=== PATIENT | female | born 1995 | race Caucasian/White ===

== ENCOUNTER 2019-12-31 15:06 | Emergency (ER) | payer SELFPAY ==
[2019-12-31 16:10] LABS: Absolute Lymphocytes (CBC) 1.4 K/uL (0.7-4.9); Basophils % 0.3 % (0-1.3); Hematocrit 41.7 % (36.0-45.0); Lymphocytes % 26.5 % (15.3-44.8); MPV 7.7 fL (7.6-11.3); RBC Red Blood Cell Count 4.52 M/uL (3.86-4.86)
[2019-12-31 16:39] LABS: Urine Blood 3+ (NEG); Urine Glucose NEGATIVE (NEG); Urine Protein 2+ (NEG); Urine Specific Gravity >1.030 (1.005-1.030)
[2019-12-31 16:46] LABS: ALT/SGPT 14 U/L (12-78); AST/SGOT 8 U/L (15-37); Albumin 4.1 g/dL (3.4-5.0); Alkaline Phosphatase 43 U/L (45-117); BUN Blood Urea Nitrogen 7 mg/dL (7-18); Bicarbonate 26 mmol/L (21-32); Bilirubin Total 1.6 mg/dL (0.2-1.0); Glucose Level 123 mg/dL (74-106); HCG, Quantitative 9405 mIU/mL (1-3); Potassium 3.4 mmol/L (3.5-5.1); Protein, Total 7.4 g/dL (6.4-8.2); Sodium Level 142 mmol/L (136-145)
[2019-12-31] MEDS ORDERED: ACETAMINOPHEN 500 MG TAB ONE (16:52)
--- NOTE | 2019-12-31 17:47 | RAD REPORT ---
EXAM DESCRIPTION: US - Transvaginal OB - 12/31/2019 5:24 pm CLINICAL HISTORY: threatened ab / ectopiuc Pelvic pain COMPARISON: OB Complete dated 02/21/2016 FINDINGS: A single gestational sac is seen within the uterus. The gestational sac is somewhat irregu lar in shape. Within the sac, no embryo or yolk sac is clearly seen. The maternal adnexa and ovaries are within normal limits. Normal Doppler blood flow was demonstrated to both ovaries. Small amount free fluid is seen in the pelvis. IMPRESSION: There is a fairly large but abnormally shaped gestational sac in the fundal endometrium. No yolk sac or embryo identified. Findings are worrisome for a blighted ovum. Advise serial HCG leve ls and follow-up pelvic sonography in 7-10 days.
--- NOTE | 2019-12-31 17:51 | ER ---
Nurse's Notes [facility] Name: Barbara Friend Age: 24 yrs Sex: Female : 1995 Arrival Date: 12/31/2019 Time: 15:09 Bed 20 Private MD: Diagnosis: Threatened ;Blighted Ovum Presentation: 12/30 15:19 Chief complaint: Patient states: Approximately 7-8 weeks , . Started to ll1 have vaginal bleeding and cramping "like a period" yesterday. + nausea with 1 vomitus today. No cough/fever/travel. Coronavirus screen: Proceed with normal triage. Patient denies a cough. Patient reports shortness of breath or difficulty breathing. Patient denies measured and/or subjective temperature greater than 100.4F prior to today's visit. Patient denies travel on a cruise ship or to a country the [facility] currently lists as an affected area. Patient denies contact with known and/or suspected case of COVID-19. Ebola Screen: Patient denies travel to an Ebola-affected area in the 21 days before illness onset. Initial Sepsis Screen: Does the patient meet any 2 criteria? HR > 90 bpm. No. Patient's initial sepsis screen is negative. Risk Assessment: Do you want to hurt yourself or someone else? Patient reports no desire to harm self or others. Onset of symptoms was December 30, 2019. 15:19 Method Of Arrival: Ambulatory [facility] 15:19 Acuity: ANGIE 3 ll1 Triage Assessment: 16:30 General: Appears in no apparent distress. Behavior is calm, cooperative. Pain: Denies pain. : Reports cramping, vaginal bleeding that is. Historical: - Allergies: 15:22 No Known Allergies; ll1 - PMHx: 15:22 None; ll1 - PSHx: 15:22 None; ll1 - Social history:: Smoking status: Patient reports the use of cigarette tobacco products, smokes one-half pack cigarettes per day, Patient/guardian denies using alcohol, street drugs. Screenin:30 Abuse screen: Denies threats or abuse. Nutritional screening: No deficits noted. Tuberculosis screening: No symptoms or risk factors identified. Fall Risk None identified. Assessment: 16:07 Obstetrical Assessment: Patient reports abdominal cramping, bleeding. 16:07 General: Appears in no apparent distress. Behavior is calm. Pain: Denies pain. Neuro: No deficits noted. Level of Consciousness is awake, alert, Oriented to person, place, time. Cardiovascular: Heart tones S1 S2 present Capillary refill < 3 seconds Patient's skin is warm and dry. Respiratory: Airway is patent Respiratory effort is even, unlabored, Respiratory pattern is regular, symmetrical, Breath sounds are clear. GI: No signs and/or symptoms were reported involving the gastrointestinal system. : Reports cramping, vaginal bleeding that is moderate flow, since yesterday. EENT: No signs and/or symptoms were reported regarding the EENT system. 16:50 Reassessment: Pt c/o increased cramping at this time. Informed MD. Tylenol ordered and ah administered. 18:00 Reassessment: Pt awaiting results at this time. No distress noted. 19:00 Reassessment: Discharge instructions given to pt with prescription to have follow up labwork drawn. Pt voiced understanding. Vital Signs: 15:19 BP 126 / 86; Pulse 94; Resp 17; Temp 98.9; Pulse Ox 98% ; Pain 4/10; ll1 15:54 BP 108 / 64; Pulse 80; Resp 16; Pulse Ox 95% on R/A; mh5 17:38 BP 106 / 55; Pulse 71; Resp 16; Temp 99(O); Pulse Ox 97% on R/A; mh5 ED Course: 15:09 Patient arrived in ED. mr 15:11 Tom Barahona MD is Attending Physician. ps1 15:22 Triage completed. ll1 15:23 Arm band placed on Patient placed in an exam room, on a stretcher. ll1 15:29 Tammy Garcia, RN is Primary Nurse. 15:35 Urine --Ancillary (enter results) Sent. [facility] 15:35 Urine Dipstick--Ancillary (enter results) Sent. 5 15:37 Radiology exam delayed due to lab results not completed at this time. test aa4 not completed at this time. 15:53 Initial lab(s) drawn, by me, sent to lab. Inserted saline lock: 22 gauge in left [facility] antecubital area, using aseptic technique. Blood collected. 15:57 Patient has correct armband on for positive identification. Bed in low position. Call [facility] light in reach. Pulse ox on. NIBP on. 15:57 CMP Sent. 5 15:57 CBC with Diff Sent. 5 16:30 No provider procedures requiring assistance completed. IV discontinued, intact, ah bleeding controlled, No redness/swelling at site. Pressure dressing applied. 17:24 Transvaginal OB In Process Unspecified. EDMS 17:49 Matias Latif MD is Referral Physician. ps1 Administered Medications: 16:50 Drug: Tylenol 1000 mg Route: PO; 17:50 Follow up: Response: No adverse reaction; Pain is decreased Outcome: 17:50 Discharge ordered by MD. ps1 18:45 Discharged to home ambulatory. 18:45 Condition: good 18:45 Discharge instructions given to patient, Instructed on discharge instructions, follow up and referral plans. Demonstrated understanding of instructions, follow-up care, Prescriptions given X 1. 19:08 Patient left the ED. jb4 Signatures: Dispatcher [employer] EDIN Grace Carpenter Amanda 4 Padilla Thayer, RN RN [facility] Jo Dickson [facility] Tom Barahona MD MD [facility] Tammy Garcia, RN RN Eun Caicedo RN RN ll1 Corrections: (The following items were deleted from the chart) 16:48 15:57 To radiology for OB Complete+US.RAD.BRZ. 5 EDIN
--- NOTE | 2019-12-31 17:51 | EDPHYS ---
Physician Documentation [facility] Name: Barbara Friend Age: 24 yrs Sex: Female : 1995 Arrival Date: 12/31/2019 Time: 15:09 Bed 20 Private MD: ED Physician Tom Barahona HPI: 12/30 15:58 This 24 yrs old Female presents to ER via Ambulatory with complaints of ps1 Vaginal Bleeding, + Preg <12wks. 15:58 1EAB presenting with VB and reportedly 7 wks by dates and home UPT. ps1 Cramping in the suprapubic area. No confirmation US. VB for last 2 days. No passage of clots. Patient of [facility] for last . No urinary complaints, sexual activity over a week ago. . Historical: - Allergies: 15:22 No Known Allergies; ll1 - PMHx: 15:22 None; ll1 - PSHx: 15:22 None; ll1 - Social history:: Smoking status: Patient reports the use of cigarette tobacco products, smokes one-half pack cigarettes per day, Patient/guardian denies using alcohol, street drugs. ROS: 15:58 Constitutional: Negative for fever, chills, and weight loss, Eyes: Negative for injury, ps1 pain, redness, and discharge, Cardiovascular: Negative for chest pain, palpitations, and edema, Respiratory: Negative for shortness of breath, cough, wheezing, and pleuritic chest pain, Abdomen/GI: Negative for abdominal pain, nausea, vomiting, diarrhea, and constipation, MS/Extremity: Negative for injury and deformity, Skin: Negative for injury, rash, and discoloration. 15:58 : Positive for vaginal bleeding. Exam: 15:58 Constitutional: This is a well developed, well nourished patient who is awake, alert, ps1 and in no acute distress. Head/Face: Normocephalic, atraumatic. Eyes: Pupils equal round and reactive to light, extra-ocular motions intact. Lids and lashes normal. Conjunctiva and sclera are non-icteric and not injected. 15:58 Chest/axilla: Inspection: normal. 15:58 Cardiovascular: Rate: normal. 15:58 Respiratory: the patient does not display signs of respiratory distress, Respirations: normal. 15:58 Abdomen/GI: Inspection: abdomen appears normal, Palpation: abdomen is soft and non-tender, mild abdominal tenderness, in the suprapubic area. 15:58 Musculoskeletal/extremity: Extremities: all appear grossly normal, with no appreciated pain with palpation. 15:58 Neuro: Orientation: is normal, Motor: is normal. 15:58 Psych: Behavior/mood is pleasant. Vital Signs: 15:19 BP 126 / 86; Pulse 94; Resp 17; Temp 98.9; Pulse Ox 98% ; Pain 4/10; ll1 15:54 BP 108 / 64; Pulse 80; Resp 16; Pulse Ox 95% on R/A; mh5 17:38 BP 106 / 55; Pulse 71; Resp 16; Temp 99(O); Pulse Ox 97% on R/A; mh5 MDM: 16:19 Patient medically screened. ps1 17:51 Data reviewed: vital signs, nurses notes, lab test result(s), radiologic studies, and ps1 as a result, I will discharge patient. Counseling: I had a detailed discussion with the patient and/or guardian regarding: the historical points, exam findings, and any diagnostic results supporting the discharge/admit diagnosis, the need for outpatient follow up, an OB/Gyne specialist, to return to the emergency department if symptoms worsen or persist or if there are any questions or concerns that arise at home, HCG in 24 hours. Need repeat US in 7-10 days. . 12/30 15:32 Order name: CBC with Diff; Complete Time: 16:19 ps1 12/30 15:32 Order name: CMP; Complete Time: 16:47 ps1 12/30 15:32 Order name: HCG-Quantitative; Complete Time: 16:47 ps1 12/30 15:33 Order name: Urine Dipstick--Ancillary (enter results); Complete Time: 16:43 em1 12/30 15:33 Order name: Urine --Ancillary (enter results); Complete Time: 16:43 em1 12/30 15:32 Order name: Urine Dipstick-Ancillary (obtain specimen); Complete Time: 15:33 ps1 12/30 16:48 Order name: Transvaginal OB; Complete Time: 17:48 EDMS 12/30 17:23 Order name: Abo/rh Typing; Complete Time: 18:23 ss Administered Medications: 16:50 Drug: Tylenol 1000 mg Route: PO; ah 17:50 Follow up: Response: No adverse reaction; Pain is decreased Disposition: 12/31/19 17:50 Discharged to Home. Impression: Threatened , Blighted Ovum. - Condition is Stable. - Discharge Instructions: Threatened Miscarriage, [id number], Blighted Ovum. - Medication Reconciliation Form, Thank You Letter, Antibiotic Education, Prescription Opioid Use form. - Follow up: Matias Latif MD; When: 48 Hours; Reason: Further diagnostic work-up, Recheck today's complaints, Continuance of care, Re-evaluation by your physician. Follow up: Emergency Department; When: As needed; Reason: Fever > 102 F, Trouble breathing, Worsening of condition. - Problem is new. - Symptoms are unchanged. Signatures: Dispatcher [employer] EDMS Padilla Thayer, RN RN jb4 Tom Barahona MD MD ps1 Tammy Garcia RN RN Eun Caicedo RN RN ll1 Corrections: (The following items were deleted from the chart) 15:34 15:32 RH TYPE+BB.LAB.BRZ ordered. EDMS EDMS 16:48 15:33 OB Complete+US.RAD.BRZ ordered. EDWI EDMS 19:08 17:50 12/31/2019 17:50 Discharged to Home. Impression: Threatened ; Blighted jb4 Ovum. Condition is Stable. Forms are Medication Reconciliation Form, Thank You Letter, Antibiotic Education, Prescription Opioid Use. Follow up: Matias Latif; When: 48 Hours; Reason: Further diagnostic work-up, Recheck today's complaints, Continuance of care, Re-evaluation by your physician. Follow up: Emergency Department; When: As needed; Reason: Fever > 102 F, Trouble breathing, Worsening of condition. Problem is new. Symptoms are unchanged. ps1
[2019-12-31 19:16] VITALS: BP 106/55; TEMP 99; O2SAT 97
== END 2019-12-31 19:08 | disposition home or self-care (01) ==
LOC: ER 15:06
DX: O02.0 Blighted ovum and nonhydatidiform mole (principal); O99.331 Smoking (tobacco) complicating pregnancy, first trimester; F17.210 Nicotine dependence, cigarettes, uncomplicated; Z3A.01 Less than 8 weeks gestation of pregnancy
CPT/HCPCS: 36415; 76817; 80053; 81003; 81025; 84702; 85025; 86900; 86901; 99284

== ENCOUNTER 2020-05-09 17:10 | Emergency (ER) | payer SELFPAY ==
--- NOTE | 2020-05-09 19:24 | RAD REPORT ---
EXAM DESCRIPTION: US - 1St Trimest Single 1St Fetus - 05/09/2020 6:53 pm CLINICAL HISTORY: VAGINAL BLEEDING COMPARISON: No comparisons FINDINGS: No intrauterine gestational sac or sac remnant identified. Thickened heterogeneous endomet rial tissue is identifiable. Minimal amount of fluid is seen in the vaginal cuff. No myometrial mass. No discrete endometrial solid mass or polyp. No blood or fluid in the cul de sac. Both ovaries are identified and show normal blood flow pattern. No adnexal mass. IMPRESSION: No intrauterine gestational sac or sac remnant. Thickened, heterogeneous endometrial tis zaid seen.
--- NOTE | 2020-05-09 19:34 | EDPHYS ---
Physician Documentation [facility] Name: Barbara Friend Age: 24 yrs Sex: Female : 1995 Arrival Date: 05/09/2020 Time: 17:12 Bed 5 Private MD: ED Physician John Lima HPI: 05/09 18:12 This 24 yrs old Female presents to ER via Wheelchair with complaints of jmm Vaginal Bleeding, + Preg <12wks. 18:12 The patient presents to the emergency department with vaginal bleeding. The estimated jmm gestational age is 8 weeks. This is a 24 year old female with no chronic medical conditions that presents to the ED with complaints of vaginal bleeding and pelvic cramping beginning today. Patient states she had an episode of light bleeding 1 week which had resolved. . SPORTS MEDIA: 17:20 3, Full Term 1, 1, Living 1, LMP 03/12/2020 jl7 18:12 3, 1, Living 1 jmm Historical: - Allergies: 17:20 No Known Allergies; jl7 - Home Meds: 17:20 None [Active]; jl7 - PMHx: 17:20 None; jl7 - PSHx: 17:20 None; jl7 - Immunization history:: Adult Immunizations up to date. - Social history:: Smoking status: Patient denies any tobacco usage or history of. ROS: 18:12 Constitutional: Negative for fever, chills, and weight loss, Cardiovascular: Negative jmm for chest pain, palpitations, and edema, Respiratory: Negative for shortness of breath, cough, wheezing, and pleuritic chest pain. 18:12 : Positive for vaginal bleeding. 18:12 All other systems are negative. Exam: 18:12 Constitutional: This is a well developed, well nourished patient who is awake, alert, jmm and in no acute distress. Head/Face: atraumatic. Eyes: EOMI, no conjunctival erythema appreciated ENT: Moist Mucus Membranes Neck: Trachea midline, Supple Chest/axilla: Normal chest wall appearance and motion. Cardiovascular: Regular rate and rhythm. No edema appreciated Respiratory: Normal respirations, no respiratory distress appreciated Abdomen/GI: Non distended, soft Back: Normal ROM Skin: General appearance color normal MS/ Extremity: Moves all extremities, no obvious deformities appreciated, no edema noted to the lower extremities Neuro: Awake and alert, normal gait Psych: Behavior is normal, Mood is normal, Patient is cooperative and pleasant Vital Signs: 17:17 BP 124 / 76; Pulse 85; Resp 15 S; Temp 98.6(O); Pulse Ox 98% on R/A; Weight 65.77 kg jl7 (R); Height 5 ft. 3 in. (160.02 cm) (R); Pain 0/10; 18:25 BP 123 / 71; Pulse 83; Resp 16; Pulse Ox 99% ; rb1 19:30 BP 105 / 67; Pulse 82; Resp 16 S; Pulse Ox 99% on R/A; mg2 17:17 Body Mass Index 25.69 (65.77 kg, 160.02 cm) jl7 MDM: 17:56 Patient medically screened. [facility] 19:25 Data reviewed: vital signs, nurses notes. Counseling: I had a detailed discussion with wilfredo the patient and/or guardian regarding: the historical points, exam findings, and any diagnostic results supporting the discharge/admit diagnosis, the need for outpatient follow up, to return to the emergency department if symptoms worsen or persist or if there are any questions or concerns that arise at home. Refusal of service: The patient/guardian displays adequate decision making capability and despite a detailed discussion of alternatives, benefits, risks, and consequences refuses: all lab tests. 05/09 18:12 Order name: 1st Trimest Single 1st Fetus; Complete Time: 19:25 [facility] 05/09 18:12 Order name: IV Saline Lock [facility] 05/09 18:12 Order name: Labs collected and sent [facility] 05/09 18:12 Order name: NPO [facility] Administered Medications: No medications were administered Disposition: 05/10 12:02 Co-signature as Attending Physician, John Lima MD I agree with the assessment and [facility] plan of care. Disposition: 05/09/20 19:33 Discharged to Home. Impression: Threatened . - Condition is Stable. - Discharge Instructions: Threatened Miscarriage. - Medication Reconciliation Form, Thank You Letter, Antibiotic Education, Prescription Opioid Use form. - Follow up: Private Physician; When: 2 - 3 days; Reason: Recheck today's complaints, Continuance of care, Re-evaluation by your physician. Signatures: Dispatcher [employer] EDMS Clarence, JohnMD MD carmine Joel, PA PA jmm Leal, Jahala RN RN jl7 Ramon Bhatt, RN RN mg2 Corrections: (The following items were deleted from the chart) 05/09 19:48 19:33 05/09/2020 19:33 Discharged to Home. Impression: Threatened . Condition mg2 is Stable. Forms are Medication Reconciliation Form, Thank You Letter, Antibiotic Education, Prescription Opioid Use. Follow up: Private Physician; When: 2 - 3 days; Reason: Recheck today's complaints, Continuance of care, Re-evaluation by your physician. wilfredo
--- NOTE | 2020-05-09 19:34 | ER ---
Nurse's Notes [facility] Name: Barbara Friend Age: 24 yrs Sex: Female : 1995 Arrival Date: 05/09/2020 Time: 17:12 Bed 5 Private MD: Diagnosis: Threatened Presentation: 05/09 17:17 Chief complaint: Patient states: "I think I had a miscarriage about an hour ago. jl7 Bleeding, cramping a I passed some tissue." Denies pain at this time. I had a miscarriage about 3 months ago also. Coronavirus screen: Client denies travel out of the [place] in the last 14 days. At this time, the client does not indicate any symptoms associated with coronavirus-19. Ebola Screen: No symptoms or risks identified at this time. Initial Sepsis Screen: Does the patient meet any 2 criteria? No. Patient's initial sepsis screen is negative. Does the patient have a suspected source of infection? No. Patient's initial sepsis screen is negative. Risk Assessment: Do you want to hurt yourself or someone else? Patient reports no desire to harm self or others. Onset of symptoms was May 09, 2020. Care prior to arrival: None. Transition of care: patient was not received from another setting of care. 17:17 Method Of Arrival: Wheelchair [facility] 17:17 Acuity: ANGIE 3 jl7 Triage Assessment: 17:20 General: Appears in no apparent distress. uncomfortable, Behavior is calm, cooperative, jl7 appropriate for age, quiet. Pain: Denies pain. Neuro: Level of Consciousness is awake, alert, obeys commands, Oriented to person, place, time, situation. Cardiovascular: Patient's skin is warm and dry. Respiratory: Airway is patent Respiratory effort is even, unlabored, Respiratory pattern is regular, symmetrical. GI: No signs and/or symptoms were reported involving the gastrointestinal system. : Reports vaginal bleeding that is. Derm: Skin is pink, warm \\T\\ dry. [employer]: 17:20 3, Full Term 1, 1, Living 1, LMP 03/12/2020 jl7 18:12 3, 1, Living 1 [facility] Historical: - Allergies: 17:20 No Known Allergies; jl7 - Home Meds: 17:20 None [Active]; jl7 - PMHx: 17:20 None; jl7 - PSHx: 17:20 None; jl7 - Immunization history:: Adult Immunizations up to date. - Social history:: Smoking status: Patient denies any tobacco usage or history of. Screenin:57 Abuse screen: Denies threats or abuse. Nutritional screening: No deficits noted. rb1 Tuberculosis screening: No symptoms or risk factors identified. Fall Risk None identified. Assessment: 17:57 General: Appears in no apparent distress. comfortable, Behavior is calm, cooperative, rb1 Denies fever, Pt. reports that she felt weak at home when she passed the tissue but she feels fine now.. Pain: Complains of pain in suprapubic area Quality of pain is described as crampy. Neuro: Level of Consciousness is awake, alert, obeys commands, Oriented to person, place, time, situation. Neuro: Denies weakness. Cardiovascular: Capillary refill < 3 seconds. Respiratory: Airway is patent Respiratory effort is even, unlabored, Respiratory pattern is regular, symmetrical. GI: Reports nausea, vomiting. : Reports vaginal bleeding that is bright red, with clots, heavy flow Reports passing tissue at home. Derm: Skin is pink, warm \\T\\ dry. 18:23 Reassessment: Pt. refused IV and labs, educated pt. on the necessity of the lab results rb1 and she continues to refuse. Provider notified. Vital Signs: 17:17 BP 124 / 76; Pulse 85; Resp 15 S; Temp 98.6(O); Pulse Ox 98% on R/A; Weight 65.77 kg 7 (R); Height 5 ft. 3 in. (160.02 cm) (R); Pain 0/10; 18:25 BP 123 / 71; Pulse 83; Resp 16; Pulse Ox 99% ; rb1 19:30 BP 105 / 67; Pulse 82; Resp 16 S; Pulse Ox 99% on R/A; mg2 17:17 Body Mass Index 25.69 (65.77 kg, 160.02 cm) 7 ED Course: 17:12 Patient arrived in ED. ag5 17:20 Triage completed. jl7 17:20 Arm band placed on right wrist. jl7 17:52 Swapna Serna, RUDOLPH is Primary Nurse. rb1 17:55 Jesse Lazar PA is PHCP. [facility] 17:55 Tee Duong MD is Attending Physician. wilfredo 17:56 Attending Physician role handed off by Tee Duong MD [facility] 17:56 John Lima MD is Attending Physician. [facility] 17:57 Patient has correct armband on for positive identification. Bed in low position. Call rb1 light in reach. Side rails up X 1. Pulse ox on. NIBP on. 18:53 US 1st Trimest Single 1st Fetus In Process Unspecified. EDMS Administered Medications: No medications were administered Outcome: 19:33 Discharge ordered by . wilfredo 19:47 Discharged to home ambulatory. mg2 19:47 Condition: stable 19:47 Discharge instructions given to patient, Instructed on discharge instructions, follow up and referral plans. Demonstrated understanding of instructions, follow-up care. 19:48 Patient left the ED. mg2 Signatures: Dispatcher [employer] EDMS John Lima MD MD cha Mickail, Joel, PA PA jmm Barber, Rebecca, RN RN rb1 Sanjeev Arevalo RN RN jl7 Ramon Bhatt RN RN mg2 Darlene Nuno ag5 Corrections: (The following items were deleted from the chart) 17:24 17:17 Chief complaint: Patient states: "I think I had a miscarriage about an hour ago. jl7 Bleeding, cramping a I passed some tissue." Denies pain at this time. jl7
== END 2020-05-09 19:48 | disposition home or self-care (01) ==
LOC: ER 17:10
DX: O20.0 Threatened abortion (principal); Z3A.08 8 weeks gestation of pregnancy
CPT/HCPCS: 76801; 99283

== ENCOUNTER 2021-04-24 19:03 | Emergency (ER) | payer SELFPAY ==
[2021-04-24] MEDS ORDERED: IBUPROFEN 400 MG TAB ONE (20:15)
--- NOTE | 2021-04-24 22:53 | EDPHYS ---
Physician Documentation [facility] Name: Barbara Friend Age: 25 yrs Sex: Female : 1995 Arrival Date: 04/24/2021 Time: 19:07 Bed 12 Private MD: ED Physician Vazquez Devine HPI: 04/24 22:45 This 25 yrs old Female presents to ER via Ambulatory with complaints of Fever.cp 22:45 The patient reports fever, with an emergency department temperature of 102.6 degrees cp Fahrenheit. 22:45 Onset: The symptoms/episode began/occurred yesterday. Associated signs and symptoms: cp Pertinent positives: headache, sore throat, body aches, Pertinent negatives: cough, diarrhea, vomiting. 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 - Social history:: Smoking status: Reported history of juuling and/or vaping. Patient uses alcohol, occasionally. ROS: 22:49 Eyes: Negative for injury, pain, redness, and discharge. cp 22:49 Constitutional: Positive for body aches, fever. 22:49 ENT: Positive for sore throat, Negative for drainage from ear(s), ear pain, difficulty swallowing, difficulty handling secretions, hoarseness. 22:49 Neck: Positive for swollen nodes. 22:49 Respiratory: Negative for cough, shortness of breath, wheezing. 22:49 Skin: Negative for rash. 22:49 Neuro: Positive for headache, Negative for altered mental status, weakness. Exam: 22:50 Head/Face: Normocephalic, atraumatic. cp 22:50 Constitutional: The patient appears in no acute distress, alert, awake, non-toxic, well developed, well nourished. 22:50 Eyes: Periorbital structures: appear normal, Conjunctiva: normal, no exudate, no injection, Sclera: no appreciated abnormality, Lids and lashes: appear normal, bilaterally. 22:50 ENT: External ear(s): are unremarkable, Ear canal(s): are normal, clear, TM's: bulging, is not appreciated, bilaterally, dullness, bilaterally, erythema, is not appreciated, bilaterally, Nose: is normal, Mouth: Lips: moist, Oral mucosa: moist, Posterior pharynx: Airway: no evidence of obstruction, patent, Tonsils: with erythema, no exudate, Uvula: midline, swelling, is not appreciated, erythema, that is moderate, exudate, is not appreciated. 22:50 Neck: Lymph nodes: lymphadenopathy is appreciated, anterior cervical nodes. 22:50 Chest/axilla: Inspection: normal, Palpation: is normal, no crepitus, no tenderness. 22:50 Cardiovascular: Rate: tachycardic, Rhythm: regular. 22:50 Respiratory: the patient does not display signs of respiratory distress, Respirations: normal, no use of accessory muscles, no retractions, labored breathing, is not present, Breath sounds: are clear throughout, no decreased breath sounds, no stridor, no wheezing. 22:50 Skin: no rash present. 22:50 Neuro: Orientation: to person, place \\T\\ time. Mentation: is normal. Vital Signs: 19:44 BP 98 / 66; Pulse 111; Resp 18; Temp 102.6(O); Pulse Ox 99% on R/A; Weight 69.4 kg; kg Height 5 ft. 3 in. (160.02 cm); Pain 9/10; 19:44 Body Mass Index 27.10 (69.40 kg, 160.02 cm) kg MDM: 22:46 Patient medically screened. cp 22:46 Differential diagnosis: URI, UTI, meningitis, strep throat, influenza, COVID-19. cp 22:52 Data reviewed: vital signs, nurses notes, lab test result(s), and as a result, I will cp discharge patient. 22:52 Counseling: I had a detailed discussion with the patient and/or guardian regarding: the cp historical points, exam findings, and any diagnostic results supporting the discharge/admit diagnosis, lab results, to return to the emergency department if symptoms worsen or persist or if there are any questions or concerns that arise at home. ED course: VS noted. Patient appears non-toxic and no signs of respiratory distress. Will discharge to home for continued monitoring. 04/24 19:46 Order name: COVID-19 : Document "Date of Symptom Onset" if Symptomatic. kg 04/24 19:46 Order name: Flu kg 04/24 19:46 Order name: Strep kg 04/24 19:47 Order name: Influenza Screen (A EDMS 04/24 19:47 Order name: Group A Streptococcus Rapid Sc EDMS 04/24 20:32 Order name: Throat Culture EDMS 04/24 22:41 Order name: SARS-COV-2 RT PCR EDMS Administered Medications: 19:59 Drug: Ibuprofen 800 mg Route: PO; kg 23:04 Follow up: Response: No adverse reaction bb Disposition: 23:13 Co-signature as Attending Physician, Vazquez Devine MD. pkl Disposition Summary: 04/24/21 22:52 Discharge Ordered Location: Home cp Problem: new cp Symptoms: are unchanged cp Condition: Stable cp Diagnosis - Acute pharyngitis, unspecified cp Followup: cp - With: Private Physician - When: 2 - 3 days - Reason: Worsening of condition Discharge Instructions: - Discharge Summary Sheet cp - Pharyngitis cp - Sore Throat cp Forms: - Work release form cp - Medication Reconciliation Form cp - Thank You Letter cp - Antibiotic Education cp - Prescription Opioid Use cp Prescriptions: - Amoxicillin 875 mg Oral Tablet - take 1 tablet by ORAL route every 12 hours for 10 days; 20 tablet; Refills: 0, cp Product Selection Permitted - Ibuprofen 800 mg Oral Tablet - take 1 tablet by ORAL route every 8 hours As needed take with food; 30 tablet; cp Refills: 0, Product Selection Permitted Signatures: [facility] Vaz[facility] Devine MD MD pkl John Cervantes PA PA cp Gunjan Olivares RN RN kg Winter Mcdonald RN bb Corrections: (The following items were deleted from the chart) 21:36 19:47 CORONAVIRUS ordered. EDMN EDMS 04/25 15:11 04/24 22:46 Data reviewed: vital signs, nurses notes, lab test result(s), and as a cp result, I will discharge patient, cp
--- NOTE | 2021-04-24 22:53 | ER ---
Nurse's Notes [facility] Name: Barbara Friend Age: 25 yrs Sex: Female : 1995 Arrival Date: 04/24/2021 Time: 19:07 Bed 12 Private MD: Diagnosis: Acute pharyngitis, unspecified Presentation: 04/24 19:44 Chief complaint: Patient states: Fever, sore throat, headache x 1 day. Coronavirus kg screen: Client denies travel out of the [place] in the last 14 days. At this time, unable to obtain information related to travel outside the [place] Client presents with at least one sign or symptom that may indicate coronavirus-19. Standard/surgical mask placed on the client. Provider contacted for isolation considerations. Ebola Screen: Patient negative for fever greater than or equal to 101.5 degrees Fahrenheit, and additional compatible Ebola Virus Disease symptoms Patient denies exposure to infectious person. Patient denies travel to an Ebola-affected area in the 21 days before illness onset. 19:44 Method Of Arrival: Ambulatory kg 19:47 Initial Sepsis Screen: Does the patient meet any 2 criteria? Temp <36.0*C (96.8*F)) or kg > 38.3*C (100.9*F). HR > 90 bpm. Does the patient have a suspected source of infection? Yes:. Risk Assessment: Do you want to hurt yourself or someone else? Patient reports no desire to harm self or others. Onset of symptoms was April 24, 2021. 19:47 Acuity: ANGIE 4 kg Triage Assessment: 19:47 General: Appears in no apparent distress. Behavior is calm, cooperative, appropriate kg for age, quiet. Pain: Complains of pain in Head, Throat. 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 - Social history:: Smoking status: Reported history of juuling and/or vaping. Patient uses alcohol, occasionally. Screenin:49 Abuse screen: Denies threats or abuse. Denies injuries from another. Nutritional kg screening: No deficits noted. Tuberculosis screening: No symptoms or risk factors identified. Fall Risk None identified. Assessment: 23:03 General: pt seen by this RN on discharge pt is A\T\O x 4, resp unlabored, pt verbalized bb understanding of and agrees to plan of care discharge instructions given pt ambulated with steady gait to exit . Vital Signs: 19:44 BP 98 / 66; Pulse 111; Resp 18; Temp 102.6(O); Pulse Ox 99% on R/A; Weight 69.4 kg; kg Height 5 ft. 3 in. (160.02 cm); Pain 9/10; 19:44 Body Mass Index 27.10 (69.40 kg, 160.02 cm) kg ED Course: 19:07 Patient arrived in ED. bp1 19:47 Triage completed. kg 19:47 Arm band placed on right wrist. kg 19:49 Patient has correct armband on for positive identification. kg 19:49 No provider procedures requiring assistance completed. kg 22:42 John Cervantes PA is PHCP. cp 22:42 Vazquez Devine MD is Attending Physician. cp 23:03 Patient did not have IV access during this emergency room visit. bb Administered Medications: 19:59 Drug: Ibuprofen 800 mg Route: PO; kg 23:04 Follow up: Response: No adverse reaction bb Outcome: 22:52 Discharge ordered by . cp 23:04 Discharged to home ambulatory. bb 23:04 Condition: stable 23:04 Discharge instructions given to patient, Instructed on discharge instructions, follow up and referral plans. medication usage, Demonstrated understanding of instructions, follow-up care, medications, Prescriptions given X 2. 23:05 Patient left the ED. bb Signatures: Winter Mcdonald RN RN bb John Cervantes PA PA cp Ashley Cadet bp1 Gunjan Olivares RN RN kg
[2021-04-24 23:35] VITALS: BP 98/66; TEMP 102.6; O2SAT 99
== END 2021-04-24 23:05 | disposition home or self-care (01) ==
LOC: ER 19:03
DX: J02.9 Acute pharyngitis, unspecified (principal); Z20.822 Contact with and (suspected) exposure to COVID-19
CPT/HCPCS: 87070; 87081; 87804; 99283; U0003